=== PATIENT | female | born 1940 | race Caucasian/White ===

== ENCOUNTER → 2016-06-05 | Outpatient (CLI) | payer MEDICARE ==
--- NOTE | 2016-06-05 11:04 | KCIC ---
PROCEDURE Chest CT without contrast. HISTORY Pulmonary nodule follow-up. TECHNIQUE Computed tomographic images of the chest were obtained without contrast. One or more of the following individualized dose reduction techniques were utilized for this examination: 1. Automated exposure control; 2. Adjustment of the mA and/or kV according to patient size; 3. Use of iterative reconstruction technique. COMPARISON 09/29/2015. FINDINGS The heart is normal in size. There is coronary artery, aortic and aortic branch vessel atherosclerosis. There are few calcified mediastinal and right hilar granulomas there is also a calcified right lower lobe granuloma. There is no pneumothorax or plural effusion. There is basilar atelectasis. There is a suspected small amount of emphysematous change or air-trapping within the right lung base. There is a small pneumatocele within the left lower lobe. There is lingular and right middle lobe atelectasis or scarring. There is a 4 mm nodule within the lateral right upper lobe and 3 mm nodule within the lateral right upper lobe. 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 There are degenerative changes throughout the thoracic and lumbar spine, predominately along the left aspect of T12 and L1. This corresponds with the level of maximum scoliotic concavity. There is a severe chronic compression fracture of T4. There is left adrenal gland thickening without a discrete lesion. There are hepatic and splenic granulomata. IMPRESSION 1. 4 mm and 3 mm nodular opacities within the right upper lobe, similar compared to the prior study when allowing for differences in imaging technique. Continued followup can be performed according to Fleischner society criteria if clinically indicated. 2. No acute pulmonary finding. 3. Healed granulomatous disease. In a low risk patient: <4mm- No follow up required. >4-6mm- 12 month follow up, if unchanged, no further follow up. >6-8mm- 6-12 month follow up, then at 18-24 months if no change. >8mm- 3, 9, 24 month follow up or consideration of PET/CT. In a high risk patient: <4mm- 12 month follow up, if unchanged then no further follow up. >4-6mm- 6-12 month follow up, then at 18-24 months if no change. >6-8mm- 3-6 month follow up, then at 9-12 months and 24 months if no change. >8mm- 3, 9, 24 month follow up or consideration of PET/CT. Electronically signed by: Nimisha Allan (Jun 05, 2016 11:03:01)
== END | disposition home or self-care (01) ==
LOC: KCIC CT 10:06
PROVIDERS: ATTEND Family Medicine
DX: R91.1 Solitary pulmonary nodule (principal)
CPT/HCPCS: 71250